=== PATIENT | female | born 1995 | race African-American/Black ===

== ENCOUNTER 2022-12-23 22:01 | Emergency (ER) | payer OTHER ==
[2022-12-23 22:08] VITALS: BP 111/67; PULSE 78; RESP 18; TEMP 98.4; BMI 26.7
[2022-12-23] MEDS ORDERED: ACETAMINOPHEN 500 MG TABLET (FP) ONE (22:37)
[2022-12-23] MEDS ORDERED: ACETAMINOPHEN 500 MG TABLET (FP) PO ONE (22:37)
== END 2022-12-23 23:16 | disposition home or self-care (01) ==
LOC: JERFT 22:01
DX: J06.9 Acute upper respiratory infection, unspecified (principal); Z20.822 Contact with and (suspected) exposure to COVID-19
CPT/HCPCS: 0241U-QW; 99283-25